=== PATIENT | female | born 1985 | race Caucasian/White ===

== ENCOUNTER 2020-05-11 14:05 | Emergency (ER) | payer BC ==
[2020-05-11 14:47] VITALS: BP 130/92; PULSE 86; TEMP 98.1; BMI 18.3
== END 2020-05-11 16:15 | disposition home or self-care (01) ==
LOC: JERFT 14:05 → JER 14:05 → JERFT 16:15
PROC: 0PSVXZZ Reposition Left Finger Phalanx, External Approach (ICD-10-PCS; principal; 2020-05-11)
DX: S62.325A Displaced fracture of shaft of fourth metacarpal bone, left hand, initial encounter for closed fracture (principal)
CPT/HCPCS: 73130-TC-LT-FY; 99284-25